=== PATIENT | female | born 1950 | race Caucasian/White ===

== ENCOUNTER 2020-10-02 08:07 | Day surgery (SDC) | payer OTHER, MEDICARE ==
[2020-09-26 14:10] VITALS: BMI 25.0
[2020-10-02] MEDS ORDERED: MIDAZOLAM HCL 2 MG/2 ML SINGLE DOSE VIAL ONE (09:47)
[2020-10-02] MEDS ORDERED: LIDOCAINE HCL 2% (20ML MULTI-DOSE VIAL) ONE (09:54)
[2020-10-02] MEDS ORDERED: ceFAZolin 2 GRAM PREMIX BAG IVPB ONE (10:08)
[2020-10-02] MEDS ORDERED: DEXAMETHASONE SOD PHOSPHATE 4 MG/1 ML VIAL ONE (10:18)
[2020-10-02] MEDS ORDERED: ceFAZolin SODIUM 1 GM VIAL ONE ×2 (10:18)
[2020-10-02] MEDS ORDERED: ONDANSETRON 4 MG/2 ML VIAL ONE (10:18)
[2020-10-02] MEDS ORDERED: KETOROLAC TROMETHAMINE 30 MG/1 ML VIAL ONE (10:18)
[2020-10-02] MEDS ORDERED: PROPOFOL 20 ML ONE (10:18)
[2020-10-02] MEDS ORDERED: LIDOCAINE HCL 2% (50ML VIAL) SQ ONE (10:19)
[2020-10-02] MEDS ORDERED: LIDOCAINE HCL/PF 2% SDV 5ML VIAL ONE (10:36)
[2020-10-02 11:59] VITALS: BP 102/64; PULSE 69; TEMP 97.8
== END 2020-10-02 11:59 | disposition home or self-care (01) ==
LOC: FASU 08:07
PROVIDERS: ATTEND Orthopaedic Surgery
PROC: 0JBJ0ZZ Excision of Right Hand Subcutaneous Tissue and Fascia, Open Approach (ICD-10-PCS; principal; 2020-10-02 09:30)
DX: D21.11 Benign neoplasm of connective and other soft tissue of right upper limb, including shoulder (principal)
CPT/HCPCS: 88305-TC

== ENCOUNTER 2023-02-13 23:34 | Emergency (ER) | payer OTHER, MEDICARE ==
[2023-02-13] MEDS ORDERED: predniSONE 20 MG TABLET (UD) PO ONE (23:40)
[2023-02-13] MEDS ORDERED: predniSONE 20 MG TABLET (UD) ONE (23:45)
[2023-02-13 23:51] VITALS: BP 139/87; PULSE 82; RESP 18; TEMP 98.6; BMI 25.2
== END 2023-02-13 23:54 | disposition home or self-care (01) ==
LOC: FER 23:34
DX: L50.9 Urticaria, unspecified (principal)
CPT/HCPCS: 99283-25